=== PATIENT | female | born 1975 | race Caucasian/White ===

== ENCOUNTER → 2020-01-31 12:28 | Outpatient (BNVA) | payer OTHER, SELFPAY | PROVIDERS: PCP Internal Medicine; Referring Provider Internal Medicine; Visit Provider Internal Medicine Gastroenterology | DX: K50.80 Crohn's disease of both small and large intestine without complications (principal); K21.9 Gastro-esophageal reflux disease without esophagitis | CPT/HCPCS: 99212 ==

== ENCOUNTER 2020-11-06 09:38 | Outpatient (REF) | payer OTHER, SELFPAY ==
--- NOTE | ~2020-11-06 | US_ITS ---
EXAMINATION: US DIAGNOSTIC ULTRASOUND BREAST, RIGHT US DIAGNOSTIC ULTRASOUND BREAST, LEFT CLINICAL INFORMATION: Follow-up probable benign subcentimeter acorn cysts with apocrine metaplasia noted on prior imaging. COMPARISON: Mammography and bilateral breast ultrasound 12/13/2019. TECHNIQUE: Ultrasound of both breasts is performed targeted to the prior areas of imaging interest. Grayscale imaging and color Doppler are performed without and with harmonics. FINDINGS: Right: There is no solid mass or architectural abnormality. No interval suspicious findings from prior ultrasound. There is no skin thickening or edema in the soft tissue planes. The cyst with fine avascular internal septation 8:00 position 7 cm from nipple with similar to prior exam measuring approximately 7 x 4 mm, prior measurement 6 x 4 mm. The acorn cyst 8:00 position 8 cm from nipple previously measuring 10 x 7 mm is no longer demonstrated. The acorn cyst 10:00 position 8 cm from nipple is similar in size measuring 6 x 5 mm, previously 7 x 6 mm. The peripheral apocrine metaplasia is decreased in extent. No color flow. No interval solid component. The other a: Cyst 11:00 position 8 cm from nipple is stable 4 x 4 millimeters. No color flow. Left: There is no solid mass or architectural abnormality. No interval suspicious findings from prior ultrasound. There is no edema in the soft tissue planes. No skin thickening. The acorn cyst for follow-up previously measuring 5 x 5 mm at 2:00 position is no longer demonstrated. There is a simple cyst noted 3:00 position 8 cm from nipple measuring 5 x 4 mm. The cyst 12:00 position 5 cm from nipple with fine avascular internal septation is decreased in size, previously measuring 9 x 4 mm and currently measuring 6 x 4 mm. There is no interval solid component or color flow. Again, there is adjacent smaller simple cyst measuring 5 x 4 mm. Results are discussed with the patient at time of visit. US/US breast LT limited IMPRESSION: 1. Bilateral small benign complicated cysts stable to decreased when compared with prior exam 12/13/2019. 2. No solid mass or architectural abnormality. No interval suspicious findings from prior ultrasound. ASSESSMENT: BI-RADS 2: Benign RECOMMENDATION: Routine annual mammography screening. This patient's information was entered into a reminder system with a target due date for their next mammogram.
== END 2020-11-06 09:39 | disposition home or self-care (01) ==
LOC: HO.MAMMO 09:38
PROVIDERS: Visit Provider Internal Medicine
DX: N60.02 Solitary cyst of left breast (principal); N60.01 Solitary cyst of right breast
CPT/HCPCS: 76642

== ENCOUNTER 2021-12-26 08:07 | Outpatient (REF) | payer OTHER, SELFPAY ==
--- NOTE | ~2021-12-26 | MM_ITS ---
EXAMINATION: MM SCREENING DIGITAL BREAST TOMOSYNTHESIS, BILATERAL CLINICAL INFORMATION: Screening. Asymptomatic. The lifetime risk of breast cancer based on the Tyrer-Cuzick Model is 7%. COMPARISON: Mammography: 12/13/2019, baseline. TECHNIQUE: Digital breast tomosynthesis is performed in both the craniocaudal and mediolateral oblique views along with computer-aided detection (CAD). Synthesized 2D images are generated from the tomosynthesis. FINDINGS: There are scattered areas of fibroglandular density (ACR BI-RADS breast composition Category b). There are scattered bilateral punctate calcifications similar in number and distribution to the prior baseline study. There is no interval mass or developing density or architectural abnormality. Minor fibrocystic changes are stable to decreased. The axilla and skin contours are unremarkable. MM/MM tomosynthesis screening BI IMPRESSION: No significant changes from prior exam 2019. ASSESSMENT: BI-RADS 2: Benign RECOMMENDATION: Routine annual mammography screening. This patient's information was entered into a reminder system with a target due date for their next mammogram.
== END 2021-12-26 08:08 | disposition home or self-care (01) ==
LOC: HO.MAMMO 08:07
PROVIDERS: Visit Provider Internal Medicine
DX: Z12.31 Encounter for screening mammogram for malignant neoplasm of breast (principal)
CPT/HCPCS: 77063; 77067

== ENCOUNTER 2023-01-18 09:30 | Outpatient (REF) | payer OTHER, SELFPAY | END 2023-01-18 09:31 | disposition home or self-care (01) | LOC: HO.MAMMO 09:30 | PROVIDERS: PCP Internal Medicine; Visit Provider Internal Medicine | DX: Z12.31 Encounter for screening mammogram for malignant neoplasm of breast (principal) | CPT/HCPCS: 77063; 77067 ==

== ENCOUNTER → 2023-01-18 10:00 | Outpatient (BNV) | payer OTHER, SELFPAY | PROVIDERS: PCP Internal Medicine; Visit Provider Radiology Diagnostic Radiology | DX: Z12.31 Encounter for screening mammogram for malignant neoplasm of breast (principal) | CPT/HCPCS: 77063; 77067 ==

== ENCOUNTER 2024-06-16 13:19 | Outpatient (REF) | payer SELFPAY ==
--- OUTSIDE RECORDS SUMMARY | 2024-06-16 15:49 | XMS_ITS | Clinical Summary ---
Author Organization [facility] Address [address] [place] [address] Phone Care Team Providers Care Side Panel Hanger Name Role Phone Physician, No Pcp Primary Care Provider Unavaila ble Allergies No known active allergies Encounters Date Type Department Care Team Description 04/19/2024 11:37 PM EST - 04/20/2024 1:57 AM EST Emergency [facility] Emergency [address] [place] [id number] Carlos Capellan MD Influenza A (Primary Dx) Discharge Disposition: Home or Self Care from Last 3 Months Social History Tobacco Use Types Packs/Day Years Used Date Smoking Tobacco: Never Assessed Comments Unknown Sex and Gender Information Value Date Recorded Sex Assigned at Female 04/29/2024 1:11 PM EST Legal Sex Female 3:01 AM EST Gender Identity Female 04/29/2024 1:11 PM EST Sexual Orientation Straight 04/29/2024 1: 11 PM EST Last Filed Vital Signs Vital Sign Reading Time Taken Comments Blood Pressure 96/64 04/20/2024 12:33 AM EST Pulse 110 04/20/2024 12:33 AM EST Temperature 37.4 ??C (99.3 ??F) 04/20/2024 12:[address] Respiratory Rate 16 04/20/2024 12:33 AM EST Oxygen Saturation 97% 04/20/2024 12:33 AM EST Inhaled Oxygen Concentration - - Weight 80.3 kg (177 lb) 04/19/2024 6:54 PM EST Height 149.9 cm (4' 11 ) 04/19/2024 6:54 PM EST Body Mass Index 35.75 04/19/2024 6:54 PM EST Plan of Treatment Health Maintenance Due Date Last Done Comments Breast Cancer Screening 1977 Hepatitis B Vaccines (1 of 3 - 19+ 3-dose series) 1996 Cervical Cancer Screening: P ap Smear 1998 Colorectal Cancer Screening: Colonoscopy 02/24/2022 Depression Screening 02/24/2022 HIV Screening 02/24/2022 Hepatitis C Screening 02/24/2022 Social Influencers of Health Screening 02/24/2022 COVID-19 Vaccine (2023-2 5 season) 2023 07/09/2022, 11/16/2020, 10/26/2020 Influenza Vaccine (#1) 2023 , 02/19/2021 DTaP,Tdap,and Td Vaccines (2 - Td or Tdap) 09/01/2033 09/02/2023 Pneumococcal Vaccine: Pediatrics (0 to 5 Years) and At-Risk Patients (6 to 64 Years) Aged Out 05/05/2023, 06/12/2020 No longer eligible based on patient's age to complete this topic HIB Vaccines Aged Out No longer eligi ble based on patient's age to complete this topic HPV Vaccines Aged Out No longer eligi ble based on patient's age to complete this topic Hepatitis A Vaccines Aged Out No long er eligible based on patient's age to complete this topic IPV Vaccines Aged Out No longer eligi ble based on patient's age to complete this topic MMR Vaccines Aged Out No longer eligi ble based on patient's age to complete this topic Meningococcal ACWY Vaccine Aged Out N o longer eligible based on patient's age to complete this topic Meningococcal B Vacine Aged Out No lo nger eligible based on patient's age to complete this topic RSV Immunization Patients Under 20 months Aged Out No longer eligible b ased on patient's age to complete this topic Varicella Vaccines Aged Out No longer eligible based on patient's age to complete this topic Procedures Procedure Name Priority Date/Time Associated Diagnosis Comments XR CHEST 2 VIEWS STAT 04/20/2024 12:4 6 AM EST CBC WITH AUTO DIFFERENTIAL STAT 04/19/2024 8:05 PM EST B-TYPE NATRIURETIC PEPTIDE STAT 04/19/2024 8:05 PM EST MAGNESIUM STAT 04/19/2024 8:05 PM EST LIPASE STAT 04/19/2024 8:05 PM EST COMPREHENSIVE METABOLIC PANEL STAT 04/19/2024 8:05 PM EST CBC AND DIFFERENTIAL STAT 04/19/2024 8:05 PM EST TROPONIN I HIGH SENSITIVITY STAT 04/19/2024 8:05 PM EST RESPIRATORY VIRUS PANEL MOLECULAR STUDY STAT 04/19/2024 7:57 PM EST ECG 12-LEAD STAT 04/19/2024 6:59 PM EST ECG ANNOTATED 04/19/2024 from Last 3 Months Results * XR Chest 2 Views (04/20/2024 12:46 AM EST) Anatomical Region Laterality Modality Body Radiographic Jodi ging 04/20/2024 8:52 AM EST Impressions 04/20/2024 8:53 AM EST Impression: No active pulmonary process identified. No significant change. Telerad AUGUSTIN ([id number]) -------- FINAL REPORT -------- Dictated By: Kimmy Agosto Dictated Date: 04/20/2024 08:52 ET Assigned Physician: Kimmy Agosto Reviewed and Electronically Signed By: Kimmy Agosto Signed Date: 04/20/2024 08:53 ET Workstation ID: [id number] Transcribed By: Self Edit Transcribed Date: 04/20/2024 08:52 ET Narrative 04/20/2024 8:53 AM EST History: Chest pain. Comparison: 07/03/20 Findings: PA and lateral views. The cardiac silhouette remains normal in size. Hilar contours are stable and the pulmonary vascularity is within normal limits. The lungs are clear. The costophrenic angles are sharp. Cholecystectomy clips are noted. A mild S-shaped thoracolumbar scoliosis is partially imaged, unchanged. Procedure Note Kimmy Agosto MD - 04/20/2024 History: Chest pain. Comparison: 07/03/20 Findings: PA and lateral views. The cardiac silhouette remains normal in size. Hilarcontours are stable and the pulmonary vascularity is within normal limits.The lungs are clear. The costophrenic angles are sharp. Cholecystectomy clips are noted. A mild S-shaped thoracolumbar scoliosisis partially imaged, unchanged. IMPRESSION: Impression: No active pulmonary process identified. No significant change. Telerad PA ([id number]) -------- FINAL REPORT -------- Dictated By: Kimmy Agosto Dictated Date: 04/20/2024 08:52 ET Assigned Physician: Kimmy Agosto Reviewed and Electronically Signed By: Kimmy Agosto Signed Date: 04/20/2024 08:53 ET Workstation ID: [id number] Transcribed By: Self Edit Transcribed Date: 04/20/2024 08:52 ET us Justin Alves MD IMG XR PROCEDURES Final R esult * Troponin I high sensitivity (04/19/2024 8:05 PM EST) High Sensitivity Troponin I <3 <=54 ng/L LAB CHEMISTRY METHOD 04/19/2024 8:49 PM EST [facility] Blood Venous blood specimen / Unknown Venipuncture / Unknown 04/19/2024 8:05 PM EST 04/19/2024 8:21 PM EST Narrative [facility] - 04/19/2024 8:49 PM EST High levels of biotin in samples may falsely decrease hsTroponin values. ??Use caution when interpreting hsTroponin results in patients taking biotin who exhibit renal impairment (eGFR <60) or in patients taking more than 20 mg/day of biotin. us Justin Alves MD LAB BLOOD ORDERABLES Rosie dillard Result [facility] [address] [place] [address], [place] [phone] * (ABNORMAL) CBC auto differential (04/19/2024 8:05 PM EST) WBC 7.1 4.8 - 10.8 K/mcL LAB HEMETOLOGY METHOD 04/19/2024 8:28 PM [facility] RBC 4.20 3.80 - 4.80 M/mcL LAB HEMETOLOGY METHOD 04/19/2024 8:28 PM [facility] Hemoglobin 12.1 11.5 - 16.0 g/dL LAB HEMETOLOGY METHOD 04/19/2024 8:28 PM [facility] Hematocrit 37.5 35.0 - 47.0 % LAB HEMETOLOGY METHOD 04/19/2024 8:28 PM [facility] MCV 88.4 79.0 - 98.0 FL LAB HEMETOLOGY METHOD 04/19/2024 8:28 PM [facility] MCH 28.5 27.0 - 32.0 pcg LAB HEMETOLOGY METHOD 04/19/2024 8:28 PM [facility] MCHC 32.3 32.0 - 37.0 g/dL LAB HEMETOLOGY METHOD 04/19/2024 8:28 PM [facility] RDW 12.6 11.0 - 15.0 % LAB HEMETOLOGY METHOD 04/19/2024 8:28 PM [facility] Platelets 223 130 - 400 K/mcL LAB HEMETOLOGY METHOD 04/19/2024 8:28 PM [facility] MPV 10.5 7.0 - 11.0 FL LAB HEMETOLOGY METHOD 04/19/2024 8:28 PM [facility] NRBC 0.0 <1.0 % LAB HEMETOLOGY METHOD 04/19/2024 8:28 PM [facility] NRBC Absolute 0.00 <0.10 K/mcL LAB HEMETOLOGY METHOD 04/19/2024 8:28 PM [facility] Neutrophils Relative 78.4 % LAB HEMETOLOGY METHOD 04/19/2024 8:28 PM [facility] Lymphocytes Relative 11.7 % LAB HEMETOLOGY METHOD 04/19/2024 8:28 PM [facility] Monocytes Relative 8.5 % LAB HEMETOLOGY METHOD 04/19/2024 8:28 PM [facility] Eosinophils Relative 0.6 % LAB HEMETOLOGY METHOD 04/19/2024 8:28 PM [facility] Basophils Relative 0.4 % LAB HEMETOLOGY METHOD 04/19/2024 8:28 PM [facility] Immature Granulocytes Relative 0.4 % LAB HEMETOLOGY METHOD 04/19/2024 8:28 PM [facility] Neutrophils Absolute 5.57 1.50 - 7.00 K/mcL LAB HEMETOLOGY METHOD 04/19/2024 8:28 PM [facility] Lymphocytes Absolute 0.83(L) 1.00 - 5.00 K/mcL LAB HEMETOLOGY METHOD 04/19/2024 8:28 PM [facility] Monocytes Absolute 0.60 0.20 - 1.00 K/mcL LAB HEMETOLOGY METHOD 04/19/2024 8:28 PM [facility] Eosinophils Absolute 0.04 0.00 - 0.50 K/mcL LAB HEMETOLOGY METHOD 04/19/2024 8:28 PM [facility] Basophils Absolute 0.03 0.00 - 0.20 K/mcL LAB HEMETOLOGY METHOD 04/19/2024 8:28 PM [facility] Immature Granulocytes Absolute 0.03 0.00 - 0.03 K/mcL LAB HEMETOLOGY METHOD 04/19/2024 8:28 PM EST [facility] Blood Venous blood specimen / Unknown Venipuncture / Unknown 04/19/2024 8:05 PM EST 04/19/2024 8:21 PM EST us Justin Alves MD LAB BLOOD ORDERABLES Rosie l Result [facility] [address] [place] [address], [place] [phone] * B-type natriuretic peptide (04/19/2024 8:05 PM EST) BNP 2 <=100 pcg/mL LAB CHEMISTRY METHOD 04/19/2024 8:56 PM EST [facility] Blood Venous blood specimen / Unknown Venipuncture / Unknown 04/19/2024 8:05 PM EST 04/19/2024 8:21 PM EST us Justin Alves MD LAB BLOOD ORDERABLES Rosie l Result Performing Organization Address [facility]/ZIP Co de Phone Number [facility] [address] [place] [address], [place] [phone] * (ABNORMAL) Magnesium (04/19/2024 8:05 PM EST) Magnesium 1.7(L) 1.9 - 2.6 mg/dL LAB CHEMISTRY METHOD 04/19/2024 8:46 PM EST [facility] Blood Venous blood specimen / Unknown Venipuncture / Unknown 04/19/2024 8:05 PM EST 04/19/2024 8:21 PM EST us Justin Alves MD LAB BLOOD ORDERABLES Rosie l Result [facility] [address] [place] [address], [place] [phone] * Lipase (04/19/2024 8:05 PM EST) [facility] Lipase 32 13 - 75 unit/L LAB CHEMISTRY METHOD 04/19/2024 8:46 PM [facility] Blood Venous blood specimen / Unknown Venipuncture / Unknown 04/19/2024 8:05 PM EST 04/19/2024 8:21 PM EST Justin Alves MD LAB BLOOD ORDERABLES Rosie l Result [facility] [address] [place] [address], [place] [phone] * (ABNORMAL) Comprehensive metabolic panel (04/19/2024 8:05 PM EST) [facility] Sodium 135 133 - 145 mmol/L LAB CHEMISTRY METHOD 04/19/2024 8:46 PM [facility] Potassium 3.5 3.5 - 5.5 mmol/L LAB CHEMISTRY METHOD 04/19/2024 8:46 PM [facility] Chloride 104 96 - 110 mmol/L LAB CHEMISTRY METHOD 04/19/2024 8:46 PM [facility] CO2 25 21 - 32 mmol/L LAB CHEMISTRY METHOD 04/19/2024 8:46 PM [facility] Anion Gap 6 3 - 11 LAB CHEMISTRY METHOD 04/19/2024 8:46 PM [facility] Glucose 134(H) 70 - 100 mg/dL LAB CHEMISTRY METHOD 04/19/2024 8:46 PM [facility] BUN 12 5 - 25 mg/dL LAB CHEMISTRY METHOD 04/19/2024 8:46 PM [facility] Creatinine 0.91 0.50 - 1.10 mg/dL LAB CHEMISTRY METHOD 04/19/2024 8:46 PM [facility] eGFR 79 >=60 mL/min/1. 73m2 LAB CHEMISTRY METHOD 04/19/2024 8:46 PM [facility] Comment:Calculation based on the??Chronic Kidney Disease Epidemiology Collaboration (CKD-EPI) equation refit??without adjustment for race. BUN/Creatinine Ratio 13.2 LAB CHEMISTRY METHOD 04/19/2024 8:46 PM [facility] Calcium 8.9 8.5 - 10.5 mg/dL LAB CHEMISTRY METHOD 04/19/2024 8:46 PM [facility] AST (SGOT) 73(H) 10 - 42 unit/L LAB CHEMISTRY METHOD 04/19/2024 8:46 PM [facility] ALT (SGPT) 57 10 - 60 unit/L LAB CHEMISTRY METHOD 04/19/2024 8:46 PM [facility] Alkaline Phosphatase 70 42 - 121 unit/L LAB CHEMISTRY METHOD 04/19/2024 8:46 PM [facility] Total Protein 8.1(H) 6.0 - 8.0 g/dL LAB CHEMISTRY METHOD 04/19/2024 8:46 PM [facility] Albumin 3.7 3.2 - 5.0 g/dL LAB CHEMISTRY METHOD 04/19/2024 8:46 PM [facility] Total Bilirubin 0.5 0.0 - 1.4 mg/dL LAB CHEMISTRY METHOD 04/19/2024 8:46 PM [facility] Blood Venous blood specimen / Unknown Venipuncture / Unknown 04/19/2024 8:05 PM EST 04/19/2024 8:21 PM EST us Justin Alves MD LAB BLOOD ORDERABLES Rosie l Result [facility] [address] [place] [address], [place] [phone] * (ABNORMAL) Respiratory virus panel molecular study (04/19/2024 7:57 PM EST) [facility] Adenovirus Detection by PCR Not Detected Not Detected LAB MICROBIOLOGY METHOD 04/19/2024 9:25 PM EST [facility] Influenza B PCR Not Detected Not Detected LAB MICROBIOLOGY METHOD 04/19/2024 9:25 PM EST [facility] Coronavirus 229E Not Detected Not Detected LAB MICROBIOLOGY METHOD 04/19/2024 9:25 PM EST [facility] Coronavirus HKU1 Not Detected Not Detected LAB MICROBIOLOGY METHOD 04/19/2024 9:25 PM EST [facility] Coronavirus OC43 Not Detected Not Detected LAB MICROBIOLOGY METHOD 04/19/2024 9:25 PM EST [facility] Coronavirus NL63 Not Detected Not Detected LAB MICROBIOLOGY METHOD 04/19/2024 9:25 PM [facility] Parainfluenza Virus 1 Not Detected Not Detected LAB MICROBIOLOGY METHOD 04/19/2024 9:25 PM EST [facility] Parainfluenza Virus 2 Not Detected Not Detected LAB MICROBIOLOGY METHOD 04/19/2024 9:25 PM EST [facility] Parainfluenza Virus 3 Not Detected Not Detected LAB MICROBIOLOGY METHOD 04/19/2024 9:25 PM [facility] Parainfluenza Virus 4 Not Detected Not Detected LAB MICROBIOLOGY METHOD 04/19/2024 9:25 PM EST [facility] RSV PCR Not Detected Not Detected LAB MICROBIOLOGY METHOD 04/19/2024 9:25 PM [facility] Human Metapneumovirus A and B Not Detected Not Detected LAB MICROBIOLOGY METHOD 04/19/2024 9:25 PM EST [facility] Rhinovirus/Entero virus Not Detected Not Detected LAB MICROBIOLOGY METHOD 04/19/2024 9:25 PM [facility] Bordetella pertussis Not Detected Not Detected LAB MICROBIOLOGY METHOD 04/19/2024 9:25 PM EST [facility] Bordetella parapertussis Not Detected Not Detected LAB MICROBIOLOGY METHOD 04/19/2024 9:25 PM EST [facility] Influenza A H1N1 PDM09 Detected(A ) Not Detected LAB MICROBIOLOGY METHOD 04/19/2024 9:25 PM EST [facility] Mycoplasma pneumo by PCR Not Detected Not Detected LAB MICROBIOLOGY METHOD 04/19/2024 9:25 PM EST [facility] Chlamydia pneumoniae Not Detected Not Detected LAB MICROBIOLOGY METHOD 04/19/2024 9:25 PM [facility] SARS COV-2 Not Detected Not Detected LAB MICROBIOLOGY METHOD 04/19/2024 9:25 PM [facility] Swab Both anterior nares / Unknown Non-blood Collection / Unknown 04/19/2024 7:57 PM EST 04/19/2024 8:22 PM EST [facility] - 04/19/2024 9:25 PM EST Testing was performed using the [employer] Respiratory Pathogen PCR Assay. All results must be correlated with the clinical findings. Results should not be used as the sole basis for diagnosis. False Negative results may occur from the presence of sequence variants in the region targeted by the assay or the presence of inhibitors. Results may be affected by concurrent antiviral/antimicrobial therapy or levels of organisms that are below the limit of detection. Justin Alves MD LAB MICROBIOLOGY - GENERA L ORDERABLES Final Result [facility] [address] [place] [address], * ECG 12 lead (04/19/2024 6:59 PM EST) Ventricular Rate ECG 131 BPM GEMUSE Atrial Rate 131 BPM GEMUSE P-R Interval 132 ms GEMUSE QRS Duration 84 ms GEMUSE Q-T Interval 294 ms GEMUSE QTc 434 ms GEMUSE P Wave Battiest 46 degrees GEMUSE R Battiest -9 degrees GEMUSE T Battiest 9 degrees GEMUSE ECG Interpretation Sinus tachycardia Nonspecific T wave abnormality Abnormal ECG When compared with ECG of 03-JUL-2020 19:54, Nonspecific T wave abnormality now evident in Lateral leads Confirmed by MD Michael, [place] ([id number]) on 04/21/2024 9:06:56 AM GEMUSE 04/19/2024 6:59 PM EST 04/21/2024 9:06 AM EST us Justin Alves MD ECG ORDERABLES Final Res ult GEMUSE * ECG-Annotated (04/19/2024) us Provider Onbase ECG ORDERABLES Final Result from Last 3 Months Insurance MEDICAID - [place] Care Teams Side Panel Hanger Relationship Specialty Start Date End Date Physician, No Pcp PCP - General 04/20/24
== END 2024-06-16 13:20 | disposition home or self-care (01) ==
LOC: HO.MAMMO 13:19
PROVIDERS: PCP Internal Medicine; Visit Provider Internal Medicine
DX: Z12.31 Encounter for screening mammogram for malignant neoplasm of breast (principal)
CPT/HCPCS: 77063; 77067

== ENCOUNTER → 2024-06-16 13:30 | Outpatient (BNV) | payer SELFPAY | PROVIDERS: PCP Internal Medicine; Visit Provider Internal Medicine | DX: Z12.31 Encounter for screening mammogram for malignant neoplasm of breast (principal) | CPT/HCPCS: 77063; 77067 ==